=== PATIENT | male | born 1990 | race Hispanic/Latino ===

== ENCOUNTER 2018-08-10 12:40 | Emergency (ER) | payer BC ==
[~2018-08-10] VITALS: Ht 177.8 cm; Wt 115.8 kg
[2018-08-10] MEDS ORDERED: ACETAMINOPHEN 325 MG TAB PO ONE (13:15)
[2018-08-10] MEDS ORDERED: IBUPROFEN 400 MG TAB PO ONE (13:15)
--- NOTE | 2018-08-10 13:40 | Diagnostic Imaging Report ---
EXAM: RIBS UNILAT W/CXR- HOPD DATE: 08/10/2018 12:00 AM INDICATION: Pain COMPARISON: None FINDINGS: The heart is not enlarged. There is no pneumothorax, pleural effusion, or focal consolidation. No depressed rib fracture identified on the left. IMPRESSION: No acute findings. Signed by: Dr. Kannan Dale MD on 08/10/2018 1:37 PM
[2018-08-10] MEDS ORDERED: KETOROLAC TROMETHAMINE 60 MG/2 ML VIAL IM ONE (14:00)
[2018-08-10] MEDS ORDERED: IBUPROFEN400 MG PO (14:04)
== END 2018-08-10 14:20 | disposition home or self-care (01) ==
LOC: FSED 12:40
DX: S20.212A Contusion of left front wall of thorax, initial encounter (principal); R07.89 Other chest pain; Y93.61 Activity, american tackle football; Y92.321 Football field as the place of occurrence of the external cause; F17.210 Nicotine dependence, cigarettes, uncomplicated
CPT/HCPCS: 71101; 99283; J1885